=== PATIENT | female | born 1935 | race Hispanic/Latino ===

== ENCOUNTER 2016-09-11 13:34 | Inpatient (IN) | payer MEDICARE, OTHER ==
[2016-09-11 13:51] VITALS: BMI 26.2
[2016-09-11] MEDS ORDERED: Sodium Chloride 0.9% 100 ML IV STA (14:08)
--- NOTE | 2016-09-11 14:08 | ED PDOC ---
Arrival/HPI - General Historian: Patient - History of Present Illness Time/Duration: < week Symptom Onset: Gradual Symptom Course: Unchanged Quality: Aching, Cramping Severity Level: 5 Activities at Onset: Rest Context: Home <Soumya Nguyen - Last Filed: 09/11/16 16:36> <Dulce Maria Raymundo - Last Filed: 09/11/16 18:35> - General Chief Complaint: Abdominal Pain Time Seen by Provider: 09/11/16 13:51 - History of Present Illness Narrative History of Present Illness (Text): 09/11/16 14:04 This is a 80Y F with PMH HTN, HLD, and anxiety came in for abdominal pain x 4 days. Patient reports 4 days ago she was feeling nauseous and threw up "coffee ground" substance x 2. The patient states she uses Tylenol for pain and denies ibuprofen use. She has not vomited since then, but is having epigastric pain with sour taste in her mouth. She also is having lower abdominal cramping that feels "like she has her period". She does have a total hysterectomy, and denies vaginal bleeding/discharge, hematuria, dysuria or increased frequency. At this time she denies n/v/d, CP, SOB, numbness/tingling, leg swelling. She went to her PMD office today and told her to go to the ED. (Soumya Nguyen) Past Medical History - Provider Review Nursing Documentation Reviewed: Yes - Cardiac Hx Hypertension: Yes - Psychiatric Hx Anxiety: Yes Hx Depression: Yes Hx Substance Use: No - Surgical History Hx Hysterectomy: Yes (complete) - Anesthesia Hx Anesthesia: Yes <Soumya Nguyen - Last Filed: 09/11/16 16:36> Family/Social History - Physician Review Nursing Documentation Reviewed: Yes Family/Social History: Hypertension Smoking Status: Never Smoked Hx Alcohol Use: No Hx Substance Use: No <Soumya Nguyen - Last Filed: 09/11/16 16:36> Allergies/Home Meds <Soumya Nguyen - Last Filed: 09/11/16 16:36> <Dulce Maria Raymundo - Last Filed: 09/11/16 18:35> Allergies/Adverse Reactions: Allergies azithromycin [From Zithromax] Allergy (Verified 09/11/16 13:52) RASH Home Medications: Home Meds Medication Instructions Recorded Confirmed Unobtainable 09/11/16 09/11/16 Review of Systems - Physician Review All systems were reviewed & negative as marked: Yes - Review of Systems Constitutional: Normal. absent: Fevers, Night Sweats Eyes: Normal. absent: Vision Changes ENT: Normal. absent: Hearing Changes Respiratory: Normal. absent: SOB, Cough, Sputum Cardiovascular: Normal. absent: Chest Pain, Edema Gastrointestinal: Abdominal Pain, Nausea, Appetite Changes. absent: Diarrhea, Vomiting Genitourinary Female: Normal. absent: Dysuria, Frequency, Hematuria Musculoskeletal: Normal. absent: Arthralgias, Back Pain Skin: Normal. absent: Rash, Pruritis Neurological: Normal. absent: Headache, Dizziness Endocrine: Normal. absent: Diaphoresis, Polyuria, Polydipsia Hemo/Lymphatic: Normal. absent: Easy Bleeding, Easy Bruising Psychiatric: Anxiety. absent: Depression <Soumya Nguyen - Last Filed: 09/11/16 16:36> Physical Exam Vital Signs Reviewed: Yes Temperature: Afebrile Blood Pressure: Normal Pulse: Tachycardic Respiratory Rate: Normal Appearance: Positive for: Well-Appearing, Non-Toxic, Comfortable Pain Distress: None Mental Status: Positive for: Alert and Oriented X 3 - Systems Exam Head: Present: Atraumatic, Normocephalic Pupils: Present: PERRL Extroacular Muscles: Present: EOMI Conjunctiva: Present: Normal Mouth: Present: Moist Mucous Membranes Neck: Present: Normal Range of Motion Respiratory/Chest: Present: Clear to Auscultation, Good Air Exchange. No: Respiratory Distress, Accessory Muscle Use Cardiovascular: Present: Regular Rate and Rhythm, Normal S1, S2. No: Murmurs Abdomen: Present: Tenderness, Distention, Normal Bowel Sounds. No: Peritoneal Signs Back: Present: Normal Inspection Upper Extremity: Present: Normal Inspection. No: Cyanosis, Edema Lower Extremity: Present: Normal Inspection. No: Edema Neurological: Present: GCS=15, CN II-XII Intact, Speech Normal Skin: Present: Warm, Dry, Normal Color. No: Rashes Psychiatric: Present: Alert, Oriented x 3, Normal Insight, Normal Concentration <Soumya Nguyen - Last Filed: 09/11/16 16:36> <Dulce Maria Raymundo - Last Filed: 09/11/16 18:35> Vital Signs Temp Pulse Resp BP Pulse Ox 09/11/16 16:36 91 H 18 122/65 97 09/11/16 15:45 98 H 18 124/61 97 09/11/16 13:34 98.1 F 111 H 18 126/59 L 97 Medical Decision Making Re-evaluation Time: 16:12 Reassessment Condition: Unchanged - Lab Interpretations I have reviewed the lab results: Yes Interpretation: No sign. chg./baseline - RAD Interpretation Overhead Worker: Radiologist - EKG Interpretation Interpreted by ED Physician: Yes Type: 12 lead EKG Comparison: No previous EKG avail. <Soumya Nguyen - Last Filed: 09/11/16 16:36> <Dulce Maria Raymundo - Last Filed: 09/11/16 18:35> ED Course and Treatment: 09/11/16 14:15 Impression: This is a 80Y F with PMH HTN, HLD who is here for abdominal pain x 4 days. Pain is epigastric as well as suprapubic. Patient was sent by PMD from office. DDx: GI bleed secondary to Gastric ulcer, GERD, UTI, SBO Plan: -- CBC, CMP, Lactic acid, U/A -- CT abd/pelvis -- NS @100 -- Reassess Prior Visits: Notes and results from previous visits were reviewed. 09/11/16 14:17 Progress Note: Patient found to have SBO on CT scan. Patient will be admitted for further management. Spoke with patient and son who are aware and agree with the plan. Spoke with Dr. Stein and surgical scheduler. Spoke with Dr. Culver who accepts the patient into his service. (Soumya Nguyen) 09/11/16 18:32 Patient was evaluated by me with medical record assistant. I examined patient and came up with treatment plan. On examination patient with mild discomfort, she is distended, but denies significant abdominal pain. Denies chest pain or sob. Patient states she moved bowels "like a rabbit" earlier in the day. CT consistent with bowel obstruction. Case discussed with Dr. Brent Stein requested by Dr. Patton. Surgery residents consulted. Patient will be admitted for small bowel obstruction. On re-exam, no abdominal pain or nausea, comfortable. IV fluids continued. (Dulce Maria Raymundo) - Lab Interpretations Lab Results: 09/11/16 14:00 09/11/16 15:20 Lab Results 09/11/16 15:20: Sodium 133, Potassium 3.6, Chloride 95 L, Carbon Dioxide 31, Anion Gap 11, BUN 12, Creatinine 0.6, Est GFR ( Amer) > 60, Est GFR (Non- Af Amer) > 60, Random Glucose 113 H, Calcium 9.2, Total Bilirubin 0.4, AST 33, ALT 31, Alkaline Phosphatase 67, Lactate Dehydrogenase 386, Total Creatine Kinase 41, Troponin I < 0.01, Total Protein 7.5, Albumin 4.0, Globulin 3.5, Albumin/Globulin Ratio 1.1 09/11/16 14:00: Lactic Acid 1.4 09/11/16 14:00: WBC 8.7, RBC 4.61, Hgb 13.9, Hct 40.5, MCV 87.9, MCH 30.2, MCHC 34.3, RDW 13.1, Plt Count 347, MPV 10.1 - RAD Interpretation Narrative RAD Interpretations (Text): 09/11/16 16:12 CT Abd/pelvis showed partial SBO please see full report for more details. 09/11/16 16:16 CXR showed no active disease. (Soumya Nguyen) Radiology Orders: 09/11/16 14:02 ABD & PELVIS W/O PO OR IV CONT [CT] Stat 09/11/16 15:01 CHEST PORTABLE [RAD] Stat - EKG Interpretation EKG Interpretation (Text): 09/11/16 16:13 HR 88. Intervals within normal limits. Normal sinus rhythm. (Soumya Nguyen) - Medication Orders Current Medication Orders: Sodium Chloride (Sodium Chloride 0.9%) 1,000 mls @ 100 mls/hr IV .Q10H TD Morphine Sulfate (Morphine) 2 mg IVP Q4H PRN PRN Reason: Pain, moderate (4-7) Ondansetron HCl (Zofran Inj) 4 mg IVP Q4H PRN PRN Reason: Nausea/Vomiting Discontinued Medications Sodium Chloride (Sodium Chloride 0.9%) 100 mls @ 100 mls/hr IV .Q1H STA Stop: 09/11/16 15:07 Last Admin: 09/11/16 14:30 Dose: 100 mls/hr - PA / [employer]ODUCTION SUPERVISOR / Resident Statement / has reviewed & agrees with the documentation as recorded. / has examined the patient and agrees with the treatment plan. <Dulce Maria Raymundo - Last Filed: 09/11/16 18:35> Disposition/Present on Arrival - Present on Arrival Any Indicators Present on Arrival: No History of DVT/PE: No History of Uncontrolled Diabetes: No Urinary Catheter: No History of Decub. Ulcer: No History Surgical Site Infection Following: None - Disposition Have Diagnosis and Disposition been Completed?: Yes Disposition Time: 16:14 Patient Plan: Admission <Soumya Nguyen - Last Filed: 09/11/16 16:36> <Dulce Maria Raymundo - Last Filed: 09/11/16 18:35> - Disposition Diagnosis: SBO (small bowel obstruction) Disposition: HOSPITALIZED Patient Problems: Current Active Problems Problem Status Onset SBO (small bowel obstruction) Acute Condition: FAIR
--- NOTE | 2016-09-11 15:43 | CT ---
PROCEDURE: CT Abdomen and Pelvis without intravenous contrast HISTORY: abdominal pain COMPARISON: None. TECHNIQUE: Without contrast.. Contrast Dose: Radiation dose: Total exam DLP = 896 mGy-cm. This CT exam was performed using one or more of the following dose reduction techniques: Automated exposure control, adjustment of the mA and/or kV according to patient size, and/or use of iterative reconstruction technique. FINDINGS: LOWER THORAX: Unremarkable. LIVER: Unremarkable. No gross lesion or ductal dilatation. GALLBLADDER AND BILE DUCTS: Unremarkable. PANCREAS: Unremarkable. No gross lesion or ductal dilatation. SPLEEN: Unremarkable. ADRENALS: Unremarkable. No mass. KIDNEYS AND URETERS: Unremarkable. No hydronephrosis. No solid mass. VASCULATURE: Unremarkable. No aortic aneurysm. BOWEL: There is a high-grade partial small bowel obstruction. Multiple dilated bowel loops are seen measuring 4 cm in diameter. There is a transition point in the right lower quadrant from 4 cm to less than 1 cm in diameter. Findings are most likely due to adhesions. There is no evidence of free air or pneumatosis. Findings were discussed with Dr. Nguyen at 3:30 p.m. APPENDIX: Unremarkable. Normal appendix. PERITONEUM: Unremarkable. No free fluid. No free air. LYMPH NODES: Unremarkable. No enlarged lymph nodes. BLADDER: Unremarkable. REPRODUCTIVE: Unremarkable. BONES: No acute fracture. OTHER FINDINGS: None. IMPRESSION: High-grade partial small bowel obstruction with transition point in the right lower quadrant
[2016-09-11 15:52] LABS: ALB/GLOB RATIO 1.1 (1.1-1.8); ALKALINE PHOSPHATASE 67 U/L (38-133); ALT/SGPT 31 U/L (7-56); AST/SGOT 33 U/L (15-39); BILIRUBIN,TOTAL 0.4 mg/dL (0.2-1.3); BLOOD UREA NITROGEN 12 mg/dL (7-21); CALCIUM 9.2 mg/dL (8.4-10.5); CARBON DIOXIDE 31 mmol/L (21-33); CHLORIDE 95 mmol/L (98-107); GFR AFRICAN-AMERICAN > 60; GLUCOSE,RANDOM 113 mg/dL (70-110); POTASSIUM 3.6 mmol/L (3.6-5.0); SODIUM 133 mmol/L (132-148); TOTAL PROTEIN 7.5 g/dL (5.8-8.3)
[2016-09-11 16:05] LABS: TROPONIN I < 0.01 ng/mL
[2016-09-11 16:16] LABS: HEMATOCRIT 40.5 % (36.0-48.0); MEAN CELL VOLUME 87.9 fL (80.0-105.0); WHITE BLOOD COUNT 8.7 10^3/ul (4.5-11.0)
[2016-09-11 16:18] LABS: MEAN CORPUSCULAR HEMOGLOBIN 30.2 pg (25.0-35.0); MEAN CORPUSCULAR HGB CONC 34.3 g/dl (31.0-37.0); MEAN PLATELET VOLUME 10.1 fl (7.0-11.0); RED CELL DISTRIBUTION WIDTH 13.1 % (11.5-14.5)
--- NOTE | 2016-09-11 16:58 | RAD ---
HISTORY: abdominal pain COMPARISON: Chest x-ray performed 02/07/15 TECHNIQUE: Chest, one view. FINDINGS: Patient's chin obscures evaluation of the lung apices. Examination limited by habitus. LUNGS: No focal consolidation. Please note that chest x-ray has limited sensitivity for the detection of pulmonary masses. PLEURA: No significant pleural effusion identified. No definite pneumothorax . CARDIOVASCULAR: Heart size appears within normal limits. Ectatic aorta. Atherosclerotic calcifications. OSSEOUS STRUCTURES: Degenerative changes. Osseous demineralization. VISUALIZED UPPER ABDOMEN: Unremarkable. OTHER FINDINGS: None. IMPRESSION: No focal consolidation, significant pleural effusion, or definite pneumothorax identified.
--- NOTE | 2016-09-11 17:10 | CP.PCM.CON ---
<Stefanie Johnson - Last Filed: 09/11/16 17:11> History of Present Illness - History of Present Illness History of Present Illness: General Surgery Dr. Stein 80 y/o F w/ PMHx of HTN, anxiety, HLD, and depression presented to the ED w/ c/ o abdominal pain x3 days. Pt reports one episode of NBNB vomiting on Saturday. Pt has never experienced abdominal pain like this before. Pt states that the pain waxes and wanes but is not associated with eating. Pt's last BM was yesterday but denies passing gas. Pt admits to nausea, belching, and mild headache but denies dizziness, CP, chest palpitations, C/D, and numbness/ tingling. PMHx: HTN, anxiety, HLD, depression Meds: reviewed in chart Allergies: azithromycin - rash PSHx: YUMIKO and BSO 8 years ago FHx: father - , lung cancer; mother - , kidney cancer SHx: denies smoking, EtOH, drug use. Review of Systems - Review of Systems All systems: reviewed and no additional remarkable complaints except (see HPI) Past Patient History - Past Medical History & Family History Past Medical History?: Yes Past Family History: Reviewed and not pertinent - Past Social History Smoking Status: Never Smoked Alcohol: None Drugs: Denies Home Situation {Lives}: Alone - CARDIAC Hx Hypercholesterolemia: Yes Hx Hypertension: Yes - PSYCHIATRIC Hx Anxiety: Yes Hx Depression: Yes Hx Substance Use: No - SURGICAL HISTORY Hx Surgeries: Yes Hx Hysterectomy: Yes (complete) - ANESTHESIA Hx Anesthesia: Yes Meds Allergies/Adverse Reactions: Allergies Allergy/AdvReac Type Severity Reaction Status Date / Time azithromycin [From Zithromax] Allergy RASH Verified 09/11/16 13:52 Physical Exam - Constitutional Appears: Well, Non-toxic, No Acute Distress - Head Exam Head Exam: ATRAUMATIC, NORMAL INSPECTION, NORMOCEPHALIC - Eye Exam Eye Exam: Normal appearance - ENT Exam ENT Exam: Mucous Membranes Moist - Neck Exam Neck exam: Positive for: Normal Inspection - Respiratory Exam Respiratory Exam: Clear to Auscultation Bilateral, NORMAL BREATHING PATTERN. absent: Accessory Muscle Use, Respiratory Distress - Cardiovascular Exam Cardiovascular Exam: REGULAR RHYTHM, +S1, +S2 - GI/Abdominal Exam GI & Abdominal Exam: Diminished Bowel Sounds (RLQ), Distended (minimal), Soft, Tenderness (minimal diffuse TTP). absent: Guarding, Rebound, Rigid Additional comments: tympanic to percussion in LUQ midline scar present - Extremities Exam Extremities exam: Positive for: normal inspection - Back Exam Back exam: NORMAL INSPECTION - Neurological Exam Neurological exam: Alert, Oriented x3 - Psychiatric Exam Psychiatric exam: Normal Affect, Normal Mood - Skin Skin Exam: Dry, Intact, Normal Color, Warm Results - Vital Signs Recent Vital Signs: Last Vital Signs Temp 98.1 F 09/11/16 13:34 Pulse 91 H 09/11/16 16:36 Resp 18 09/11/16 16:36 BP 122/65 09/11/16 16:36 Pulse Ox 97 09/11/16 16:36 - Labs Result Diagrams: 09/11/16 14:00 09/11/16 15:20 Labs: Laboratory Results - last 24 hr 09/11/16 09/11/16 09/11/16 14:00 14:00 15:20 WBC 8.7 RBC 4.61 Hgb 13.9 Hct 40.5 MCV 87.9 MCH 30.2 MCHC 34.3 RDW 13.1 Plt Count 347 MPV 10.1 Sodium 133 Potassium 3.6 Chloride 95 L Carbon Dioxide 31 Anion Gap 11 BUN 12 Creatinine 0.6 Est GFR ( Amer) > 60 Est GFR (Non-Af Amer) > 60 Random Glucose 113 H Lactic Acid 1.4 Calcium 9.2 Total Bilirubin 0.4 AST 33 ALT 31 Alkaline Phosphatase 67 Lactate Dehydrogenase 386 Total Creatine Kinase 41 Troponin I < 0.01 Total Protein 7.5 Albumin 4.0 Globulin 3.5 Albumin/Globulin Ratio 1.1 - Imaging and Cardiology CT scan - abdomen Status: Image reviewed by me Assessment & Plan - Assessment and Plan (Free Text) Assessment: 80 y/o F w/ abd pain likely 2/2 SBO Plan: - NPO, IVF - Monitor bowel function - NGT placement if N/V worsens - Pain management - Medical management as per primary team - GI/DVT PPxs Pt discussed w/ Dr. Emil Johnson DO PGY1 <Young Stein - Last Filed: 09/11/16 21:00> Meds - Medications Medications: Current Medications Diazepam (Valium) 10 mg PO QID TD PRN Reason: Protocol Sodium Chloride (Sodium Chloride 0.9%) 1,000 mls @ 100 mls/hr IV .Q10H TD Last Admin: 09/11/16 19:00 Dose: 100 mls/hr Metoprolol Tartrate (Lopressor) 5 mg IVP Q6H PRN PRN Reason: Systolic Blood Pressure Morphine Sulfate (Morphine) 2 mg IVP Q4H PRN PRN Reason: Pain, moderate (4-7) Ondansetron HCl (Zofran Inj) 4 mg IVP Q4H PRN PRN Reason: Nausea/Vomiting Results - Vital Signs Recent Vital Signs: Last Vital Signs Temp 97.8 F 09/11/16 19:39 Pulse 93 H 09/11/16 20:07 Resp 16 09/11/16 20:07 BP 162/87 H 09/11/16 19:39 Pulse Ox 98 09/11/16 20:07 - Labs Result Diagrams: 09/11/16 14:00 09/11/16 15:20 Labs: Laboratory Results - last 24 hr 09/11/16 19:29 Urine Color Yellow Urine Appearance Cloudy Urine pH 6.0 Ur Specific [place] 1.015 Urine Protein Trace H Urine Glucose (UA) Negative Urine Ketones Trace H Urine Blood Trace-intact H Urine Nitrate Negative Urine Bilirubin Negative Urine Urobilinogen 0.2 Ur Leukocyte Esterase Large H Urine RBC 1 - 3 Urine WBC 25 - 30 Ur Epithelial Cells 6 - 8 Urine Bacteria Many Assessment & Plan - Assessment and Plan (Free Text) Assessment: DX PSBO-Adhesions HT Hyperlipidemia Rx NPO-? NG Tube/No Surgery recommended now This consultation done under my direct supervision Brent Stein MD FACS
[2016-09-11] MEDS ORDERED: Morphine 2 mg/ml ISec IVP PRN (17:40)
[2016-09-11] MEDS: Sodium Chloride 0.9% 1,000 ML IV SCH (19:00)
[2016-09-11 19:39] LABS: URINE BILIRUBIN NEGATIVE (NEGATIVE); URINE BLOOD TRACE-INTACT (NEGATIVE); URINE GLUCOSE (UA) NEGATIVE (NEGATIVE); URINE KETONE TRACE mg/dL (NEGATIVE); URINE LEUKOCYTE ESTERASE LARGE Leu/uL (NEGATIVE); URINE PROTEIN TRACE mg/dL (<30 mg/dL); URINE UROBILINOGEN 0.2 E.U./dL (<1 E.U./dL)
[2016-09-11 19:42] LABS: URINE COLOR YELLOW (YELLOW)
[2016-09-11 19:43] LABS: URINE APPEARANCE CLOUDY (CLEAR)
[2016-09-11 20:12] LABS: URINE WBC 25 - 30 /hpf (0-6)
[2016-09-11 20:13] LABS: URINE BACTERIA MANY (NEG)
--- NOTE | 2016-09-11 20:58 | CP.PCM.PCO ---
Physician Communication Note - Physician Communication Note Physician Communication Note: PSBO Rx NPO--?NG Tube in am--No surgery now!
--- NOTE | 2016-09-11 21:33 | CARD ---
APPROVED REPORT EKG Measurement Heart [id number] <Conclusion> Normal sinus rhythm Voltage criteria for left ventricular hypertrophy Possible Lateral infarct, age undetermined T wave abnormality, consider inferior ischemia Abnormal ECG
[2016-09-11] MEDS: Metoprolol 1 mg/ml Inj IVP PRN (23:45)
[2016-09-12 07:30] LABS: ADD MANUAL DIFF? NO
[2016-09-12 07:52] LABS: ALB/GLOB RATIO 1.1 (1.1-1.8); ALKALINE PHOSPHATASE 66 U/L (38-133); ALT/SGPT 28 U/L (7-56); AST/SGOT 25 U/L (15-39); BILIRUBIN,TOTAL 0.5 mg/dL (0.2-1.3); BLOOD UREA NITROGEN 14 mg/dL (7-21); CALCIUM 8.9 mg/dL (8.4-10.5); CARBON DIOXIDE 31 mmol/L (21-33); CHLORIDE 97 mmol/L (95-110); GFR AFRICAN-AMERICAN > 60; GLUCOSE,RANDOM 108 mg/dL (70-110); POTASSIUM 3.6 mmol/L (3.6-5.0); SODIUM 133 mmol/L (132-148)
[2016-09-12 07:53] LABS: BASO # 0.04 K/mm3 (0.0-2.0); BASO % 0.5 % (0.0-3.0); EOS # 0.3 (0.0-0.7); EOS % 3.5 % (1.5-5.0); GRAN # 5.96 (1.4-6.5); GRAN % 69.8 % (50.0-68.0); HEMATOCRIT 38.6 % (36.0-48.0); LYMPH % 12.1 % (22.0-35.0); MEAN CELL VOLUME 86.5 fL (80.0-105.0); MEAN CORPUSCULAR HGB CONC 34.7 g/dl (31.0-37.0); MEAN PLATELET VOLUME 9.8 fl (7.0-11.0); MONO # 1.2 (0.1-0.6); MONO % 14.1 % (1.0-6.0); PLATELET COUNT 346 10^3/uL (120.0-450.0); RED CELL DISTRIBUTION WIDTH 12.9 % (11.5-14.5); WHITE BLOOD COUNT 8.5 10^3/ul (4.5-11.0)
[2016-09-12 08:00] LABS: INR 1.03 (0.93-1.08); PARTIAL THROMBOPLASTIN TIME 25.9 Seconds (23.7-30.8)
--- NOTE | 2016-09-12 08:05 | HP ---
HISTORY OF PRESENT ILLNESS: The patient is in the [facility] in [place] Emergency Room. The patient came in with abdominal pain and vomiting. The patient is a 80-year-old white female. She has no history of any fever. She has no history of diarrhea. PAST MEDICAL HISTORY: Significant in that she has hyperlipidemia and hypertension. She has had past history of cataract surgery. She has a past history of total hysterectomy. She has history of anxiety for which she takes anxiety medication from Dr. Cagle, he is a psychiatrist. PHYSICAL EXAMINATION: The patient's evaluation in the Emergency Room: VITAL SIGNS: The pulse is 91, blood pressure 122/65, respirations 18, O2 sat is 97% on room air, respirations are 18 as mentioned. HEAD: Normocephalic. NECK: The thyroid is not enlarged and no lymphadenopathy. Carotid pulses are present. LUNGS: Trachea central. Breath sounds vesicular. No adventitious sounds are heard. HEART: NSR. S1, S2 present. No murmurs, no rubs. ABDOMEN: Soft and distended. There is some localizing tenderness in the left lower quadrant. RECTAL: Does not reveal any pathology. CENTRAL NERVOUS SYSTEM: She is conscious, rational, oriented. Cranial nerves are intact II- XII. The patient's motor and sensory functions are within normal limits. The patient has no gait abnormality. LABORATORY DATA: Total white count of 8000. Differential is not completed at this time. The patient's chemistry: The blood sugar is 113, sodium is 133, potassium is 3.6. The patient's blood sugar as mentioned, GFR is within normal limits. All other chemical parameters are okay. Liver enzymes are within normal limits, AST and ALT. The alkaline phosphatase is within normal limits. The patient's EKG shows normal sinus rhythm, no acute findings. Chest x-ray is clear. Examination of the abdomen by CAT scan shows evidence of small intestinal obstruction, possibly secondary to adhesions, but any other pathology is not excluded. The patient is being clinically evaluated at this time. She is NPO, on IV fluids and we will keep a close eye on the patient and will watch for any evidence of infection. The patient's diagnosis is small bowel obstruction. The patient has hypertension and also patient has history of depression and anxiety. We will consult Dr. Cagle who is the psychiatrist to evaluate the patient and Dr. Stein, general surgeon, will be called in for the case for evaluation and treatment for surgical management. Rory Culver MD cc: [phone] TT: 09/11/2016 21:59:58 claudio DALTON
--- NOTE | 2016-09-12 08:26 | CP.PCM.PN ---
Subjective - Date & Time of Evaluation Date of Evaluation: 09/12/16 Time of Evaluation: 07:45 - Subjective Subjective: Patient is seen this morning. She is complaining of gas and abdominal pain. Objective - Vital Signs/Intake and Output Vital Signs (last 24 hours): Temp Pulse Resp BP Pulse Ox 98.2 F 88 18 160/95 H 98 09/12/16 00:17 09/12/16 00:17 09/12/16 00:17 09/12/16 00:17 09/11/16 20:07 Intake and Output: 09/12/16 09/12/16 06:59 18:59 Intake Total 800 0 Balance 800 0 - Medications Medications: Current Medications Diazepam (Valium) 10 mg PO QID TD PRN Reason: Protocol Last Admin: 09/11/16 22:30 Dose: Not Given Sodium Chloride (Sodium Chloride 0.9%) 1,000 mls @ 100 mls/hr IV .Q10H [facility] Last Admin: 09/11/16 19:00 Dose: 100 mls/hr Metoprolol Tartrate (Lopressor) 5 mg IVP Q6H PRN PRN Reason: Systolic Blood Pressure Last Admin: 09/11/16 23:45 Dose: 5 mg Morphine Sulfate (Morphine) 2 mg IVP Q4H PRN PRN Reason: Pain, moderate (4-7) Ondansetron HCl (Zofran Inj) 4 mg IVP Q4H PRN PRN Reason: Nausea/Vomiting - Labs Labs: 09/12/16 07:00 09/12/16 07:00 PT 11.1 Seconds (9.9-11.8) 09/12/16 07:00 INR 1.03 (0.93-1.08) 09/12/16 07:00 APTT 25.9 Seconds (23.7-30.8) 09/12/16 07:00 - Constitutional Appears: No Acute Distress - Head Exam Head Exam: ATRAUMATIC, NORMOCEPHALIC - Respiratory Exam Respiratory Exam: Clear to Ausculation Bilateral, NORMAL BREATHING PATTERN - Cardiovascular Exam Cardiovascular Exam: +S1, +S2 - GI/Abdominal Exam GI & Abdominal Exam: Soft Additional comments: mild RLQ tenderness - Neurological Exam Neurological Exam: Alert, Awake, Oriented x3 Assessment and Plan - Assessment and Plan (Free Text) Assessment: Bowel obstruction HTN Anxiety Plan: Patient has bowel obstruction. Dr. Stein is on the case. possible NG tube insertion Patient is NPO, IV fluids. She takes Tranxene at home for anxiety. Dr. Cagle, who is her psychiatrist, is consulted. Tranxene is not available in the hospital. Valium has been ordered, which may be given with sips of water.
[2016-09-12] MEDS ORDERED: Barium Sulfate for Susp 98% w/w 340g Bottle ONE (09:29)
--- NOTE | 2016-09-12 09:40 | RAD ---
HISTORY: Eval PSBO COMPARISON: No prior. FINDINGS: BOWEL: There is small bowel obstruction with multiple dilated loops of small bowel containing air-fluid levels. There is also fluid level in the stomach. There is no evidence of free air BONES: Normal. OTHER FINDINGS: None. IMPRESSION: There is small bowel obstruction with multiple dilated loops of small bowel containing air-fluid levels. There is also fluid level in the stomach. There is no evidence of free air
[2016-09-12] MEDS: Metoprolol 1 mg/ml Inj IVP PRN ×4 (11:35→22:38)
[2016-09-12] MEDS ORDERED: Lidocaine 2% Jelly (Uro-Jet) TOP ONE (11:38)
--- NOTE | 2016-09-12 13:08 | CP.PCM.PCO ---
Physician Communication Note - Physician Communication Note Physician Communication Note: Needs NG Tube-non cramping now
--- NOTE | 2016-09-12 13:35 | CP.PCM.PN ---
Subjective - Date & Time of Evaluation Date of Evaluation: 09/12/16 Time of Evaluation: 09:00 - Subjective Subjective: General Surgery Progress Note for Dr. Stein Pt was seen and examined at bedside. No acure complaints at this time. No acute or adverse events overnight. Pt is passing flatus however has not passed a bm yet. She still feels some abdominal discomfort and distention. Pt denied fever, chills, abdominal pain, n/v/d/c. Objective - Vital Signs/Intake and Output Vital Signs (last 24 hours): Temp Pulse Resp BP Pulse Ox 99.0 F 86 20 176/100 H 97 09/12/16 06:00 09/12/16 11:35 09/12/16 06:00 09/12/16 11:35 09/12/16 06:00 Intake and Output: 09/12/16 09/12/16 06:59 18:59 Intake Total 800 0 Balance 800 0 - Medications Medications: Current Medications Diazepam (Valium) 10 mg PO QID TD PRN Reason: Protocol Last Admin: 09/12/16 11:20 Dose: 10 mg Sodium Chloride (Sodium Chloride 0.9%) 1,000 mls @ 100 mls/hr IV .Q10H [facility] Last Admin: 09/11/16 19:00 Dose: 100 mls/hr Metoprolol Tartrate (Lopressor) 5 mg IVP Q6H PRN PRN Reason: Systolic Blood Pressure Last Admin: 09/12/16 11:35 Dose: 5 mg Morphine Sulfate (Morphine) 2 mg IVP Q4H PRN PRN Reason: Pain, moderate (4-7) Ondansetron HCl (Zofran Inj) 4 mg IVP Q4H PRN PRN Reason: Nausea/Vomiting Pantoprazole Sodium (Protonix Inj) 40 mg IVP DAILY [facility] - Labs Labs: 09/12/16 07:00 09/12/16 07:00 PT 11.1 Seconds (9.9-11.8) 09/12/16 07:00 INR 1.03 (0.93-1.08) 09/12/16 07:00 APTT 25.9 Seconds (23.7-30.8) 09/12/16 07:00 - Constitutional Appears: Well, No Acute Distress - Head Exam Head Exam: ATRAUMATIC, NORMAL INSPECTION, NORMOCEPHALIC - Eye Exam Eye Exam: EOMI, Normal appearance, PERRL - ENT Exam ENT Exam: Mucous Membranes Moist, Normal Exam - Neck Exam Neck Exam: Full ROM, Normal Inspection. absent: Lymphadenopathy - Respiratory Exam Respiratory Exam: Clear to Ausculation Bilateral, NORMAL BREATHING PATTERN - Cardiovascular Exam Cardiovascular Exam: REGULAR RHYTHM, +S1, +S2. absent: Murmur - GI/Abdominal Exam GI & Abdominal Exam: Distended, Soft, Hypoactive Bowel Sounds. absent: Tenderness - Extremities Exam Extremities Exam: Full ROM, Normal Capillary Refill, Normal Inspection. absent : Joint Swelling, Pedal Edema - Back Exam Back Exam: NORMAL INSPECTION - Psychiatric Exam Psychiatric exam: Normal Affect, Normal Mood - Skin Skin Exam: Dry, Intact, Normal Color, Warm Assessment and Plan - Assessment and Plan (Free Text) Assessment: 80 F with abdominal distension and pain 2/2 SBO - NPO, IVF, NGT placed for decompression - Monitor bowel function - Pain management - Medical management as per primary team - GI/DVT ppx reviewed Seen reviewed and discussed with attending Ruddy De León, PGY1
[2016-09-12] MEDS: Sodium Chloride 0.9% 1,000 ML IV SCH (14:19)
--- NOTE | 2016-09-12 15:51 | PCM.PSYCH ---
Initial Psychiatric Evaluation - Initial Psychiatric Evaluation Legal Status: Capacity Chief Complaint (in patient's own words): Abdominal pain presumably secondary to small bowel obstruction Patient noted to be very anxious. Has been under my care for many years for a generalized anxiety disorder with somatic features Patient's Reaction to Hospitalization: Patient anxious and worried over her medical status. She ordinarily has health concerns and can be quite histrionic in her anxiety and presentation. Often times needs much reassurance and support History of Present Illness and Precipitating Events: Patient under my care for many years for an anxiety disorder with somatic and histrionic features Current Medications: Active Medications Generic Name Dose Route Start Last Admin Trade Name Freq PRN Reason Stop Dose Admin Clonidine HCl 1 patch 09/12/16 14:00 09/12/16 14:18 Catapres-Tts3 0.3 Mg/24 Hr TD 1 patch Q7D@1000 TD Administration Diazepam 10 mg 09/11/16 22:00 09/12/16 14:24 Valium PO 10 mg QID TD Administration Protocol Sodium Chloride 1,000 mls @ 100 mls/hr 09/11/16 17:45 09/12/16 14:19 Sodium Chloride 0.9% IV 100 mls/hr .Q10H TD Administration Metoprolol Tartrate 5 mg 09/12/16 13:44 09/12/16 14:23 Lopressor IVP 5 mg Q4H PRN Administration for SBP>140 Morphine Sulfate 2 mg 09/11/16 17:40 Morphine IVP Q4H PRN Pain, moderate (4-7) Ondansetron HCl 4 mg 09/11/16 17:40 Zofran Inj IVP Q4H PRN Nausea/Vomiting Pantoprazole Sodium 40 mg 09/12/16 13:45 09/12/16 14:24 Protonix Inj IVP 40 mg DAILY TD Administration Past Psychiatric History - Past Psychiatric History Prior Psychiatric Treatment: Under my care since the Nature of Treatment: Is seen several times a year on an outpatient basis. Years ago was seen Explanation of prior treatment: Patient Wil comes for supportive psychotherapy and has been on Tranxene for many yearssince 1986 History of Abuse: Denies History of ETOH/Drug Use: I deny History of Family Illness: in the . Patient has never fully recovered from this loss. Pertinent Medical Hx (Current Medical&Sleep Prob, Allergies): Allergies Allergy/AdvReac Type Severity Reaction Status Date / Time azithromycin [From Zithromax] Allergy RASH Verified 09/11/16 13:52 Unobtainable 09/11/16 Review of Systems - Constitutional Constitutional: UN - EENT Eyes: UNREMARKABLE Ears: UNREMARKABLE Nose/Mouth/Throat: UNREMARKABLE - Breasts Breasts: UNREMARKABLE - Cardiovascular Cardiovascular: UNREMARKABLE - Respiratory Respiratory: UNREMARKABLE - Gastrointestinal Gastrointestinal: UNREMARKABLE - Genitourinary Genitourinary: UNREMARKABLE - Reproductive: Female Reproductive:Female: UNREMARKABLE - Menstruation Menstruation: UNREMARKABLE - Musculoskeletal Musculoskeletal: UNREMARKABLE - Integumentary Integumentary: UNREMARKABLE - Neurological Neurological: UNREMARKABLE - Psychiatric Psychiatric: Anxiety, Depression, Panic Attacks - Endocrine Endocrine: UNREMARKABLE - Hematologic/Lymphatic Hematologic: UNREMARKABLE DSM 5 DX - DSM 5 DSM 5 Diagnosis: Generalized anxiety disorder Histrionic personality disorder Symptom somatic disorder - Recommended/Plan of Treatment Treatment Recommendations and Plan of Treatment: Ongoing supportive psychotherapy and pharmacotherapy with benzodiazepine tranquilization
--- NOTE | 2016-09-12 18:38 | CARD ---
APPROVED REPORT EKG Measurement Heart [id number] <Conclusion> Normal sinus rhythm Possible Left atrial enlargement Left ventricular hypertrophy with repolarization abnormality Cannot rule out Septal infarct, age undetermined Abnormal ECG
[2016-09-13] MEDS: Sodium Chloride 0.9% 1,000 ML IV SCH ×2 (02:58→20:20)
[2016-09-13 07:14] LABS: ADD MANUAL DIFF? NO
[2016-09-13 07:20] LABS: BASO # 0.06 K/mm3 (0.0-2.0); EOS # 0.2 (0.0-0.7); EOS % 3.4 % (1.5-5.0); GRAN # 3.36 (1.4-6.5); GRAN % 57.9 % (50.0-68.0); HEMATOCRIT 36.5 % (36.0-48.0); LYMPH # 1.1 (1.2-3.4); LYMPH % 18.4 % (22.0-35.0); MEAN CELL VOLUME 86.5 fL (80.0-105.0); MEAN CORPUSCULAR HEMOGLOBIN 30.1 pg (25.0-35.0); MEAN CORPUSCULAR HGB CONC 34.8 g/dl (31.0-37.0); MEAN PLATELET VOLUME 9.8 fl (7.0-11.0); MONO # 1.1 (0.1-0.6); MONO % 19.3 % (1.0-6.0); PLATELET COUNT 320 10^3/uL (120.0-450.0); RED CELL DISTRIBUTION WIDTH 12.9 % (11.5-14.5); WHITE BLOOD COUNT 5.8 10^3/ul (4.5-11.0)
[2016-09-13 07:52] LABS: ALB/GLOB RATIO 1.1 (1.1-1.8); ALKALINE PHOSPHATASE 59 U/L (38-133); ALT/SGPT 29 U/L (7-56); AST/SGOT 23 U/L (15-39); BILIRUBIN,TOTAL 0.4 mg/dL (0.2-1.3); BLOOD UREA NITROGEN 14 mg/dL (7-21); CALCIUM 8.3 mg/dL (8.4-10.5); CARBON DIOXIDE 27 mmol/L (21-33); CHLORIDE 100 mmol/L (95-110); GFR AFRICAN-AMERICAN > 60; GLUCOSE,RANDOM 84 mg/dL (70-110); POTASSIUM 3.4 mmol/L (3.6-5.0); SODIUM 133 mmol/L (132-148); TOTAL PROTEIN 6.1 g/dL (5.8-8.3)
--- NOTE | 2016-09-13 09:55 | CP.PCM.PN ---
Subjective - Date & Time of Evaluation Date of Evaluation: 09/13/16 Time of Evaluation: 08:30 - Subjective Subjective: General Surgery Progress Note for Dr. Stein Pt was seen and examined at bedside. No acute complaints at this time. No acute or adverse events overnight. Pt had NG tube place yesterday that voided approx 2L of fluid. Pt is continuing to drain light green fluid. Pt is passing flatus however has not passed a bm yet. She states her abdomen feels less bloated than yesterday. Denied fever chills, abdominal pain, n/v/d/c. Objective - Vital Signs/Intake and Output Vital Signs (last 24 hours): Temp Pulse Resp BP Pulse Ox 98.7 F 84 20 174/85 H 98 09/13/16 07:59 09/13/16 07:59 09/13/16 07:59 09/13/16 07:59 09/13/16 07:59 Intake and Output: 09/13/16 09/13/16 06:59 18:59 Intake Total 0 0 Output Total 1 Balance 0 -1 - Medications Medications: Current Medications Benzocaine/Menthol (Cepacol Sore Throat) 1 loraine MT Q2H PRN PRN Reason: Sore Throat Clonidine HCl (Catapres-Tts3 0.3 Mg/24 Hr) 1 patch TD Q7D@1000 [facility] Last Admin: 09/12/16 14:18 Dose: 1 patch Diazepam (Valium) 10 mg PO QID [facility] PRN Reason: Protocol Last Admin: 09/12/16 22:39 Dose: 10 mg Sodium Chloride (Sodium Chloride 0.9%) 1,000 mls @ 100 mls/hr IV .Q10H [facility] Last Admin: 09/13/16 02:58 Dose: 100 mls/hr Metoprolol Tartrate (Lopressor) 5 mg IVP Q4H PRN PRN Reason: for SBP>140 Last Admin: 09/12/16 22:38 Dose: 5 mg Morphine Sulfate (Morphine) 2 mg IVP Q4H PRN PRN Reason: Pain, moderate (4-7) Last Admin: 09/13/16 02:00 Dose: 2 mg Ondansetron HCl (Zofran Inj) 4 mg IVP Q4H PRN PRN Reason: Nausea/Vomiting Pantoprazole Sodium (Protonix Inj) 40 mg IVP DAILY [facility] Last Admin: 09/12/16 14:24 Dose: 40 mg - Labs Labs: 09/13/16 07:00 09/13/16 07:00 PT 11.1 Seconds (9.9-11.8) 09/12/16 07:00 INR 1.03 (0.93-1.08) 09/12/16 07:00 APTT 25.9 Seconds (23.7-30.8) 09/12/16 07:00 - Constitutional Appears: No Acute Distress - Head Exam Head Exam: ATRAUMATIC, NORMAL INSPECTION, NORMOCEPHALIC - Eye Exam Eye Exam: EOMI, Normal appearance, PERRL - ENT Exam ENT Exam: Mucous Membranes Moist, Normal Exam - Neck Exam Neck Exam: Full ROM, Normal Inspection. absent: Lymphadenopathy - Respiratory Exam Respiratory Exam: Clear to Ausculation Bilateral, NORMAL BREATHING PATTERN - Cardiovascular Exam Cardiovascular Exam: REGULAR RHYTHM, +S1, +S2. absent: Murmur - GI/Abdominal Exam GI & Abdominal Exam: Soft, Hypoactive Bowel Sounds. absent: Tenderness Additional comments: NG tube in place - Extremities Exam Extremities Exam: Full ROM, Normal Capillary Refill, Normal Inspection. absent : Joint Swelling, Pedal Edema - Neurological Exam Neurological Exam: Alert, Awake, CN II-XII Intact, Oriented x3 - Psychiatric Exam Psychiatric exam: Normal Affect, Normal Mood - Skin Skin Exam: Dry, Intact, Normal Color, Warm Assessment and Plan - Assessment and Plan (Free Text) Assessment: 80 F with abdominal distension and pain 2/2 SBO - NPO, IVF, NGT placed for decompression - Monitor bowel function, clamp NGT and walk recommended - Pain management - Medical management as per primary team - GI/DVT ppx reviewed Seen reviewed and discussed with attending
--- NOTE | 2016-09-13 11:00 | RAD ---
PROCEDURE: Small bowel series HISTORY: SBO COMPARISON: TECHNIQUE: A single contrast study was performed. FINDINGS: As seen on CT there is small bowel obstruction with multiple dilated loops of small bowel. There is no significant of movement of contrast through the small bowel. The study was discontinued after 1 hour. IMPRESSION: Small bowel obstruction. Limited exam
--- NOTE | 2016-09-13 14:20 | CP.PCM.PN ---
Subjective - Date & Time of Evaluation Date of Evaluation: 09/13/16 Time of Evaluation: 13:45 - Subjective Subjective: Patient is seen this afternoon in room 364 bed 2. NG tube in place and draining green fluid. Patient complains of abdominal discomfort. Objective - Vital Signs/Intake and Output Vital Signs (last 24 hours): Temp Pulse Resp BP Pulse Ox 98.7 F 84 20 174/85 H 98 09/13/16 07:59 09/13/16 07:59 09/13/16 07:59 09/13/16 07:59 09/13/16 07:59 Intake and Output: 09/13/16 09/13/16 06:59 18:59 Intake Total 0 0 Output Total 1 Balance 0 -1 - Medications Medications: Current Medications Benzocaine/Menthol (Cepacol Sore Throat) 1 loraine MT Q2H PRN PRN Reason: Sore Throat Clonidine HCl (Catapres-Tts3 0.3 Mg/24 Hr) 1 patch TD Q7D@1000 [facility] Last Admin: 09/12/16 14:18 Dose: 1 patch Diazepam (Valium) 10 mg PO QID [facility] PRN Reason: Protocol Last Admin: 09/13/16 11:58 Dose: 10 mg Sodium Chloride (Sodium Chloride 0.9%) 1,000 mls @ 100 mls/hr IV .Q10H [facility] Last Admin: 09/13/16 02:58 Dose: 100 mls/hr Metoprolol Tartrate (Lopressor) 5 mg IVP Q4H PRN PRN Reason: for SBP>140 Last Admin: 09/12/16 22:38 Dose: 5 mg Ondansetron HCl (Zofran Inj) 4 mg IVP Q4H PRN PRN Reason: Nausea/Vomiting Pantoprazole Sodium (Protonix Inj) 40 mg IVP DAILY [facility] Last Admin: 09/13/16 11:58 Dose: 40 mg - Labs Labs: 09/13/16 07:00 09/13/16 07:00 PT 11.1 Seconds (9.9-11.8) 09/12/16 07:00 INR 1.03 (0.93-1.08) 09/12/16 07:00 APTT 25.9 Seconds (23.7-30.8) 09/12/16 07:00 - Constitutional Appears: No Acute Distress - Respiratory Exam Respiratory Exam: Clear to Ausculation Bilateral, NORMAL BREATHING PATTERN - Cardiovascular Exam Cardiovascular Exam: REGULAR RHYTHM, +S1, +S2 - GI/Abdominal Exam GI & Abdominal Exam: Soft, Hypoactive Bowel Sounds. absent: Tenderness - Extremities Exam Extremities Exam: Normal Inspection - Neurological Exam Neurological Exam: Alert, Awake, Oriented x3 Assessment and Plan - Assessment and Plan (Free Text) Assessment: SBO HTN Anxiety H/O hysterectomy Hyperlipidemia Plan: Nasogastric tube placed yesterday and draining large amounts of green fluid. 500 ml of fluid drained since this morning. continue NG tube drainage NPO, IVFs, potassium replaced this morning; BMP in AM Patient with severe anxiety disorder. She is currently on valium and Dr. Cagle is seeing her. OOB to chair
--- NOTE | 2016-09-13 22:20 | PCM.PYCHPN ---
Psychiatric Progress Note - Psychiatric Progress Note Patient seen today, length of contact: 25 Patient Chief Complaint: Abdominal pain presumably secondary to small bowel obstruction Patient noted to be very anxious. Has been under my care for many years for a generalized anxiety disorder with somatic features Problems Identified/Issues Discussed: being treated for intestinal blockage. Is anxious, depressed. I've offered supportive therapy for this woman who is frequently somatic Medical Problems: Patient Wil comes for supportive psychotherapy and has been on Tranxene for many yearssince 1986 Diagnostic Results: Remains anxious. Affect appears more depressed and patient does speak about feeling depressed. Needs encouragement and support. Medication Change: No Medical Record Reviewed: Yes Mental Status Examination - Cognitive Function Orientation: Person, Place, Situation, Time Memory: Intact Attention: WNL Concentration: WNL Fund of Knowledge: WNL Decription of patient's judgement and insights: Aware of her present health status although tends to catastrophize. Her insight and judgment is generally affected by this hypochondriacal anxiety. - Mood Mood: Depressed, Anxious - Affect Affect: Depressed - Formal Thought Process Formal Thought Process: No Impairment - Suicidal Ideation Suicidal Ideation: No - Homicidal Ideation Homicidal Ideation: No Goal/Treatment Plan - Goal/Treatment Plan Progress Toward Problem(s) and Goals/Treatment Plan: Ongoing supportive psychotherapy and pharmacotherapy with benzodiazepine tranquilization
[2016-09-14] MEDS: Sodium Chloride 0.9% 1,000 ML IV SCH (05:59)
[2016-09-14 07:20] LABS: ADD MANUAL DIFF? NO
[2016-09-14 07:27] LABS: BASO # 0.14 K/mm3 (0.0-2.0); BASO % 2.5 % (0.0-3.0); EOS # 0.4 (0.0-0.7); EOS % 6.7 % (1.5-5.0); GRAN # 3.02 (1.4-6.5); GRAN % 53.5 % (50.0-68.0); HEMATOCRIT 33.5 % (36.0-48.0); LYMPH % 18.3 % (22.0-35.0); MEAN CELL VOLUME 88.6 fL (80.0-105.0); MEAN CORPUSCULAR HEMOGLOBIN 30.4 pg (25.0-35.0); MEAN CORPUSCULAR HGB CONC 34.3 g/dl (31.0-37.0); MEAN PLATELET VOLUME 9.5 fl (7.0-11.0); MONO # 1.1 (0.1-0.6); PLATELET COUNT 293 10^3/uL (120.0-450.0); RED CELL DISTRIBUTION WIDTH 13.3 % (11.5-14.5); WHITE BLOOD COUNT 5.6 10^3/ul (4.5-11.0)
[2016-09-14 07:37] LABS: ALKALINE PHOSPHATASE 46 U/L (38-133); ALT/SGPT 28 U/L (7-56); AST/SGOT 25 U/L (15-39); BILIRUBIN,TOTAL 0.5 mg/dL (0.2-1.3); BLOOD UREA NITROGEN 18 mg/dL (7-21); CALCIUM 8.1 mg/dL (8.4-10.5); CARBON DIOXIDE 24 mmol/L (21-33); CHLORIDE 104 mmol/L (95-110); GFR AFRICAN-AMERICAN > 60; GLUCOSE,RANDOM 58 mg/dL (70-110); SODIUM 135 mmol/L (132-148); TOTAL PROTEIN 5.8 g/dL (5.8-8.3)
[2016-09-14 07:42] LABS: POTASSIUM 3.8 mmol/L (3.6-5.0)
--- NOTE | 2016-09-14 08:06 | CP.PCM.PN ---
Subjective - Date & Time of Evaluation Date of Evaluation: 09/14/16 Time of Evaluation: 07:40 - Subjective Subjective: Patient is seen this morning in room 364 bed 2 while sitting up in chair. She has dark brown -greenish fluid draining through NG tube. Objective - Vital Signs/Intake and Output Vital Signs (last 24 hours): Temp Pulse Resp BP Pulse Ox 98.7 F 94 H 20 154/83 H 98 09/13/16 16:00 09/13/16 16:00 09/13/16 16:00 09/13/16 16:00 09/13/16 16:00 Intake and Output: 09/14/16 09/14/16 06:59 18:59 Intake Total 2400 Output Total 275 Balance 2400 -275 - Medications Medications: Current Medications Benzocaine/Menthol (Cepacol Sore Throat) 1 loraine MT Q2H PRN PRN Reason: Sore Throat Clonidine HCl (Catapres-Tts3 0.3 Mg/24 Hr) 1 patch TD Q7D@1000 [facility] Last Admin: 09/12/16 14:18 Dose: 1 patch Diazepam (Valium) 10 mg PO QID [facility] PRN Reason: Protocol Last Admin: 09/13/16 21:45 Dose: 10 mg Sodium Chloride (Sodium Chloride 0.9%) 1,000 mls @ 100 mls/hr IV .Q10H [facility] Last Admin: 09/14/16 05:59 Dose: 100 mls/hr Metoprolol Tartrate (Lopressor) 5 mg IVP Q4H PRN PRN Reason: for SBP>140 Last Admin: 09/12/16 22:38 Dose: 5 mg Ondansetron HCl (Zofran Inj) 4 mg IVP Q4H PRN PRN Reason: Nausea/Vomiting Pantoprazole Sodium (Protonix Inj) 40 mg IVP DAILY [facility] Last Admin: 09/13/16 11:58 Dose: 40 mg - Labs Labs: 09/14/16 06:20 09/14/16 06:20 PT 11.1 Seconds (9.9-11.8) 09/12/16 07:00 INR 1.03 (0.93-1.08) 09/12/16 07:00 APTT 25.9 Seconds (23.7-30.8) 09/12/16 07:00 - Constitutional Appears: No Acute Distress - Head Exam Head Exam: ATRAUMATIC, NORMOCEPHALIC - Respiratory Exam Respiratory Exam: Clear to Ausculation Bilateral, NORMAL BREATHING PATTERN - Cardiovascular Exam Cardiovascular Exam: +S1, +S2 - GI/Abdominal Exam GI & Abdominal Exam: Soft. absent: Tenderness - Neurological Exam Neurological Exam: Alert, Awake, Oriented x3 Assessment and Plan - Assessment and Plan (Free Text) Assessment: SBO HTN Anxiety Plan: Patient has NG tube in place, draining dark brown greenish fluid. She will continue to be NPO. Potassium normalized today. Blood sugar is low. Will change IVFs to D51/2NS OOB to chair continue Valium for anxiety
[2016-09-14] MEDS ORDERED: Dextrose 5%/0.45% NS 1,000 ML IV SCH (08:15)
--- NOTE | 2016-09-14 09:25 | CP.PCM.PN ---
Subjective - Date & Time of Evaluation Date of Evaluation: 09/14/16 Time of Evaluation: 07:30 - Subjective Subjective: Surgery: Dr. Stein Pt seen and examined. No acute events overnight. States she feels ok but still denies having a BM, admits to some flatus. Denies N/V, F/C. Objective - Vital Signs/Intake and Output Vital Signs (last 24 hours): Temp Pulse Resp BP Pulse Ox 98 F 77 18 113/58 L 96 09/14/16 08:25 09/14/16 08:25 09/14/16 08:25 09/14/16 08:25 09/14/16 08:25 Intake and Output: 09/14/16 09/14/16 06:59 18:59 Intake Total 2400 Output Total 275 Balance 2400 -275 - Medications Medications: Current Medications Benzocaine/Menthol (Cepacol Sore Throat) 1 loraine MT Q2H PRN PRN Reason: Sore Throat Clonidine HCl (Catapres-Tts3 0.3 Mg/24 Hr) 1 patch TD Q7D@1000 [facility] Last Admin: 09/12/16 14:18 Dose: 1 patch Diazepam (Valium) 10 mg PO QID [facility] PRN Reason: Protocol Last Admin: 09/13/16 21:45 Dose: 10 mg Dextrose/Sodium Chloride (Dextrose 5%/0.45% Ns 1000 Ml) 1,000 mls @ 80 mls/hr IV .[id number] [facility] Metoprolol Tartrate (Lopressor) 5 mg IVP Q4H PRN PRN Reason: for SBP>140 Last Admin: 09/12/16 22:38 Dose: 5 mg Ondansetron HCl (Zofran Inj) 4 mg IVP Q4H PRN PRN Reason: Nausea/Vomiting Pantoprazole Sodium (Protonix Inj) 40 mg IVP DAILY [facility] Last Admin: 09/13/16 11:58 Dose: 40 mg - Labs Labs: 09/14/16 06:20 09/14/16 06:20 PT 11.1 Seconds (9.9-11.8) 09/12/16 07:00 INR 1.03 (0.93-1.08) 09/12/16 07:00 APTT 25.9 Seconds (23.7-30.8) 09/12/16 07:00 - Constitutional Appears: Well, No Acute Distress - Head Exam Head Exam: ATRAUMATIC, NORMOCEPHALIC - Eye Exam Eye Exam: Normal appearance - ENT Exam ENT Exam: Mucous Membranes Moist Additional comments: NGT in place - Respiratory Exam Respiratory Exam: NORMAL BREATHING PATTERN - Cardiovascular Exam Cardiovascular Exam: RRR - GI/Abdominal Exam GI & Abdominal Exam: Distended, Soft. absent: Guarding, Tenderness, Rebound - Extremities Exam Extremities Exam: absent: Tenderness - Neurological Exam Neurological Exam: Alert, Awake, Oriented x3 - Skin Skin Exam: Dry, Intact, Warm Assessment and Plan - Assessment and Plan (Free Text) Assessment: 80F with SBO Plan: - cont NGT suction - will order abdomen flat/upright to re-eval obstruction and positioning of NGT since output continues to be high - monitor bowel function - d/w Dr. Emil López, PGY-2 Surgery
--- NOTE | 2016-09-14 11:11 | RAD ---
HISTORY: evaluate SBO/NGT COMPARISON: 09/12/2016 FINDINGS: BOWEL: There is residual barium contrast material in the small bowel. The small bowel is dilated measuring 5.4 cm maximum diameter. The nasogastric tube is in satisfactory position BONES: Normal. OTHER FINDINGS: None. IMPRESSION: There is residual barium contrast material in the small bowel. The small bowel is dilated measuring 5.4 cm maximum diameter. The nasogastric tube is in satisfactory position
--- NOTE | 2016-09-14 12:56 | PCM.PYCHPN ---
Psychiatric Progress Note - Psychiatric Progress Note Patient seen today, length of contact: 25 Patient Chief Complaint: Abdominal pain presumably secondary to small bowel obstruction Patient noted to be very anxious. Has been under my care for many years for a generalized anxiety disorder with somatic features Problems Identified/Issues Discussed: being treated for intestinal blockage. Is anxious, depressed. I've offered supportive therapy for this woman who is frequently somatic Medical Problems: Patient Wil comes for supportive psychotherapy and has been on Tranxene for many yearssince 1986 Diagnostic Results: Remains anxious. Affect appears more depressed and patient does speak about feeling depressed. Needs encouragement and support. DSM 5 Symptoms Update: Mood and affect improving. Less anxious. Less depressed. More interactive. Medication Change: No Medical Record Reviewed: Yes Mental Status Examination - Cognitive Function Orientation: Person, Place, Situation, Time Memory: Intact Attention: WNL Concentration: WNL Fund of Knowledge: WNL Decription of patient's judgement and insights: Aware of her present health status although tends to catastrophize. Her insight and judgment is generally affected by this hypochondriacal anxiety. - Mood Mood: Neutral - Affect Affect: Broad - Speech Speech: Appropriate - Formal Thought Process Formal Thought Process: No Impairment - Suicidal Ideation Suicidal Ideation: No - Homicidal Ideation Homicidal Ideation: No Goal/Treatment Plan - Goal/Treatment Plan Progress Toward Problem(s) and Goals/Treatment Plan: Ongoing supportive psychotherapy and pharmacotherapy with benzodiazepine tranquilization On September 14 patient showing significant improvement compared to yesterday. More interactive. Affect brighter less somatic although still somatic.
--- NOTE | 2016-09-14 13:53 | PN ---
DATE: 09/14/2016 SUBJECTIVE: The patient is draining more than 2000 mL of green small bowel content daily. The input and output is difficult to obtain for proper documentation and the nursing staff is now notified yossi t this will be important along with daily weights. The patient's cramping has disappeared. She has passed a large amount of flatus this morning without passing any particular liquid from the rectum, but feels better and is comfortable with the tube, ta shiv Cepastat lozenge and ice chips with water. Extensive discussion was held with the patient and xiomara davis by telephone with her son describing this conservative measure to attempt to avoid surgical inter vention if possible. Questions were asked and answered and all issues were addressed at this point. The patient did ask if surgery was necessary if it could be done laparoscopically and it was explain ed that it would be initially tried that way, but as the patient has had a hysterectomy and most of t he adhesions would be down in the lower pelvis, this may or may not be possible if she undergoes surg joseph. In the meantime, the intravenous fluids will be increased to 100 mL an hour and potassium was recomme nded to be added because of the significant output and the patient's clinical hydration status. This dictation will be electronically signed without being read. Young Stein MD cc: [id number] TT: 09/14/2016 13:53:02 Confirmation # [id number] Dictation # [id number] paul
[2016-09-14] MEDS: Benzocaine/Menthol (Cepacol) Lozenge MT PRN (13:57)
[2016-09-15 07:40] LABS: ADD MANUAL DIFF? NO
[2016-09-15 07:53] LABS: BASO % 2.1 % (0.0-3.0); EOS # 0.3 (0.0-0.7); GRAN # 2.92 (1.4-6.5); GRAN % 60.1 % (50.0-68.0); HEMATOCRIT 31.9 % (36.0-48.0); LYMPH # 0.9 (1.2-3.4); LYMPH % 18.8 % (22.0-35.0); MEAN CELL VOLUME 88.1 fL (80.0-105.0); MEAN CORPUSCULAR HEMOGLOBIN 30.4 pg (25.0-35.0); MEAN CORPUSCULAR HGB CONC 34.5 g/dl (31.0-37.0); MEAN PLATELET VOLUME 9.6 fl (7.0-11.0); MONO # 0.6 (0.1-0.6); PLATELET COUNT 287 10^3/uL (120.0-450.0); RED CELL DISTRIBUTION WIDTH 13.1 % (11.5-14.5); WHITE BLOOD COUNT 4.9 10^3/ul (4.5-11.0)
[2016-09-15] MEDS ORDERED: D5 IV SCH (07:55)
[2016-09-15] MEDS ORDERED: [UNRECOGNIZED DRUG - OTHER] IV SCH (07:55)
[2016-09-15] MEDS ORDERED: POTASSIUM CHL IV SCH (07:55)
[2016-09-15] MEDS ORDERED: DEXTROSE IV SCH (07:55)
[2016-09-15 08:11] LABS: ALKALINE PHOSPHATASE 54 U/L (38-133); ALT/SGPT 29 U/L (7-56); BILIRUBIN,TOTAL 0.4 mg/dL (0.2-1.3); BLOOD UREA NITROGEN 12 mg/dL (7-21); CALCIUM 7.9 mg/dL (8.4-10.5); CARBON DIOXIDE 20 mmol/L (21-33); CHLORIDE 107 mmol/L (95-110); GFR AFRICAN-AMERICAN > 60; GLUCOSE,RANDOM 56 mg/dL (70-110); POTASSIUM 3.7 mmol/L (3.6-5.0); SODIUM 137 mmol/L (132-148); TOTAL PROTEIN 5.5 g/dL (5.8-8.3)
[2016-09-15 08:37] LABS: AST/SGOT 23 U/L (15-39)
--- NOTE | 2016-09-15 08:42 | PN ---
DATE: 09/15/2016 The patient is in the [facility] in [place], room 364, bed 2. She was admitted with intestinal obstruction, small bowel. She has history of hypertension. The patient has history of atherosclerotic heart disease, degenerative arthritis. The patient also has a history of anxiety and depression. Her psychiatrist is Dr. Cagle. The patient is seen this morning. She is lying down, comfortable. She answers all the questions. She is pleasant. She has no pain at this time. The nasogastric tube is draining bile- colored fluid. PHYSICAL EXAMINATION: VITAL SIGNS: The pulse is 80, blood pressure 140/80. The patient's respirations are 20, temperature 97. O2 sat is 97% on room air. HEAD: Normocephalic. NECK: Thyroid is not enlarged. No lymphadenopathy. HEART: Normal sinus rhythm. S1, S2 present. LUNGS: Trachea is central. Breath sounds are vesicular, bilaterally equal. No adventitious sounds are heard. ABDOMEN: Soft. There is no localizing tenderness. RECTAL: Deferred. There are intestinal peristaltic sounds. The patient was complaining of constipation but she had an enema yesterday and it was resolved. The patient is on IV fluids, Protonix. The patient's condition seemed to be clinically stable. Overall, prognosis guarded based on what the outcome of intestinal obstruction is. We will follow up. MEDICATION LIST: She is on metoprolol IV q. 4 hours p.r.n. for systolic pressure over 150. The patient is on clonidine patch, TTS 3. The patient is on pantoprazole 40 mg IV and Valium [address] Cagle. She is on Zofran for nausea. Rory Culver MD cc: [phone] TT: 09/15/2016 08:41:43 Confirmation # [id number] Dictation # [id number] MTDD
--- NOTE | 2016-09-15 09:59 | CP.PCM.PN ---
Subjective - Date & Time of Evaluation Date of Evaluation: 09/15/16 Time of Evaluation: 09:56 - Subjective Subjective: Surgery: Dr. Stein Pt seen and examined. No acute overnight events. States she feels better today. Admits to hard stool passage after enema but denies voluntary BMs. Admits to flatus. Denies abdominal pain, N/V, F/C. Objective - Vital Signs/Intake and Output Vital Signs (last 24 hours): Temp Pulse Resp BP Pulse Ox 97 F L 80 20 140/80 97 09/14/16 16:00 09/14/16 16:00 09/14/16 16:00 09/14/16 16:00 09/14/16 16:00 Intake and Output: 09/15/16 09/15/16 06:59 18:59 Intake Total 0 Balance 0 - Medications Medications: Current Medications Benzocaine/Menthol (Cepacol Sore Throat) 1 loraine MT Q2H PRN PRN Reason: Sore Throat Last Admin: 09/14/16 13:57 Dose: 1 loraine Clonidine HCl (Catapres-Tts3 0.3 Mg/24 Hr) 1 patch TD Q7D@1000 [facility] Last Admin: 09/12/16 14:18 Dose: 1 patch Diazepam (Valium) 10 mg PO QID TD PRN Reason: Protocol Last Admin: 09/15/16 09:32 Dose: 10 mg Potassium Chloride/Dextrose/Sod Cl 50 ml/ Dextrose/Sodium Chloride 1,050 mls @ 100 mls/hr IV .[id number] [facility] Metoprolol Tartrate (Lopressor) 5 mg IVP Q4H PRN PRN Reason: for SBP>140 Last Admin: 09/12/16 22:38 Dose: 5 mg Ondansetron HCl (Zofran Inj) 4 mg IVP Q4H PRN PRN Reason: Nausea/Vomiting Pantoprazole Sodium (Protonix Inj) 40 mg IVP DAILY [facility] Last Admin: 09/15/16 09:32 Dose: 40 mg - Labs Labs: 09/15/16 07:00 09/15/16 07:00 PT 11.1 Seconds (9.9-11.8) 09/12/16 07:00 INR 1.03 (0.93-1.08) 09/12/16 07:00 APTT 25.9 Seconds (23.7-30.8) 09/12/16 07:00 - Constitutional Appears: Well, No Acute Distress - Head Exam Head Exam: ATRAUMATIC, NORMOCEPHALIC - Eye Exam Eye Exam: Normal appearance - ENT Exam ENT Exam: Mucous Membranes Moist - Respiratory Exam Respiratory Exam: NORMAL BREATHING PATTERN - Cardiovascular Exam Cardiovascular Exam: RRR - GI/Abdominal Exam GI & Abdominal Exam: Soft. absent: Distended, Guarding, Tenderness, Rebound - Extremities Exam Extremities Exam: absent: Tenderness - Neurological Exam Neurological Exam: Alert, Awake, Oriented x3 - Skin Skin Exam: Dry, Intact, Warm Assessment and Plan - Assessment and Plan (Free Text) Assessment: 81F with SBO; resolving Plan: - will administer another enema - will try clamping NGT and starting CLD to see if pt tolerates - cont to encourage ambulation - d/w Dr. Emil López, PGY-2 Surgery
[2016-09-15] MEDS: Potassium Chl 10 mEq in D5-1/2 1,000 ML IV SCH ×2 (16:02→22:40)
[2016-09-15] MEDS: Benzocaine/Menthol (Cepacol) Lozenge MT PRN (18:03)
[2016-09-16] MEDS: Metoprolol 1 mg/ml Inj IVP PRN ×2 (00:25→04:50)
--- NOTE | 2016-09-16 00:33 | CP.PCM.PN ---
Subjective - Date & Time of Evaluation Date of Evaluation: 09/16/16 Time of Evaluation: 00:32 - Subjective Subjective: Metroprolol 5 mg IV was administered slowly as per order. Ms Velasquez Sanchez is asymptomatic. BP 186/84, HR 95/min. Objective - Vital Signs/Intake and Output Vital Signs (last 24 hours): Temp Pulse Resp BP Pulse Ox 97 F L 95 H 20 184/82 H 97 09/14/16 16:00 09/16/16 00:25 09/14/16 16:00 09/16/16 00:25 09/14/16 16:00 Intake and Output: 09/15/16 09/16/16 18:59 06:59 Intake Total 540 Output Total 900 Balance -360 - Medications Medications: Current Medications Benzocaine/Menthol (Cepacol Sore Throat) 1 loraine MT Q2H PRN PRN Reason: Sore Throat Last Admin: 09/15/16 18:03 Dose: 1 loraine Clonidine HCl (Catapres-Tts3 0.3 Mg/24 Hr) 1 patch TD Q7D@1000 [facility] Last Admin: 09/12/16 14:18 Dose: 1 patch Diazepam (Valium) 10 mg PO QID [facility] PRN Reason: Protocol Last Admin: 09/15/16 21:59 Dose: 10 mg Potassium Chloride/Dextrose/Sod Cl (Potassium Chl 10 Meq In D5-1/2ns) 1,000 mls @ 100 mls/hr IV .Q10H [facility] Last Admin: 09/15/16 22:40 Dose: 100 mls/hr Metoprolol Tartrate (Lopressor) 5 mg IVP Q4H PRN PRN Reason: for SBP>140 Last Admin: 09/16/16 00:25 Dose: 5 mg Ondansetron HCl (Zofran Inj) 4 mg IVP Q4H PRN PRN Reason: Nausea/Vomiting Pantoprazole Sodium (Protonix Inj) 40 mg IVP DAILY [facility] Last Admin: 09/15/16 09:32 Dose: 40 mg - Labs Labs: 09/15/16 07:00 09/15/16 07:00 PT 11.1 Seconds (9.9-11.8) 09/12/16 07:00 INR 1.03 (0.93-1.08) 09/12/16 07:00 APTT 25.9 Seconds (23.7-30.8) 09/12/16 07:00
--- NOTE | 2016-09-16 04:58 | CP.PCM.PN ---
Subjective - Date & Time of Evaluation Date of Evaluation: 09/16/16 Time of Evaluation: 04:57 - Subjective Subjective: Lopressor 5 mg IV was administered as per order. She is asymptomatic. BP157/74, HR 81/min. Objective - Vital Signs/Intake and Output Vital Signs (last 24 hours): Temp Pulse Resp BP Pulse Ox 100 F H 81 20 157/74 H 98 09/16/16 02:18 09/16/16 04:50 09/16/16 02:18 09/16/16 04:50 09/16/16 02:18 Intake and Output: 09/15/16 09/16/16 18:59 06:59 Intake Total 540 Output Total 900 Balance -360 - Medications Medications: Current Medications Benzocaine/Menthol (Cepacol Sore Throat) 1 loraine MT Q2H PRN PRN Reason: Sore Throat Last Admin: 09/15/16 18:03 Dose: 1 loraine Clonidine HCl (Catapres-Tts3 0.3 Mg/24 Hr) 1 patch TD Q7D@1000 [facility] Last Admin: 09/12/16 14:18 Dose: 1 patch Diazepam (Valium) 10 mg PO QID [facility] PRN Reason: Protocol Last Admin: 09/15/16 21:59 Dose: 10 mg Potassium Chloride/Dextrose/Sod Cl (Potassium Chl 10 Meq In D5-1/2ns) 1,000 mls @ 100 mls/hr IV .Q10H [facility] Last Admin: 09/15/16 22:40 Dose: 100 mls/hr Metoprolol Tartrate (Lopressor) 5 mg IVP Q4H PRN PRN Reason: for SBP>140 Last Admin: 09/16/16 04:50 Dose: 5 mg Ondansetron HCl (Zofran Inj) 4 mg IVP Q4H PRN PRN Reason: Nausea/Vomiting Pantoprazole Sodium (Protonix Inj) 40 mg IVP DAILY [facility] Last Admin: 09/15/16 09:32 Dose: 40 mg - Labs Labs: 09/15/16 07:00 09/15/16 07:00 PT 11.1 Seconds (9.9-11.8) 09/12/16 07:00 INR 1.03 (0.93-1.08) 09/12/16 07:00 APTT 25.9 Seconds (23.7-30.8) 09/12/16 07:00
--- NOTE | 2016-09-16 08:23 | CP.PCM.PN ---
Subjective - Date & Time of Evaluation Date of Evaluation: 09/16/16 Time of Evaluation: 08:20 - Subjective Subjective: Surgery: Dr. Stein Pt seen and examined. No acute overnight events. States she feels better. Pt had a BM last night and continues to have flatus. Denies N/V, F/C. Objective - Vital Signs/Intake and Output Vital Signs (last 24 hours): Temp Pulse Resp BP Pulse Ox 99.4 F 81 20 157/74 H 95 09/16/16 04:56 09/16/16 04:56 09/16/16 04:56 09/16/16 04:56 09/16/16 04:56 Intake and Output: 09/16/16 09/16/16 06:59 18:59 Intake Total 1485 Output Total 2050 Balance -565 - Medications Medications: Current Medications Benzocaine/Menthol (Cepacol Sore Throat) 1 loraine MT Q2H PRN PRN Reason: Sore Throat Last Admin: 09/15/16 18:03 Dose: 1 loraine Clonidine HCl (Catapres-Tts3 0.3 Mg/24 Hr) 1 patch TD Q7D@1000 [facility] Last Admin: 09/12/16 14:18 Dose: 1 patch Diazepam (Valium) 10 mg PO QID [facility] PRN Reason: Protocol Last Admin: 09/15/16 21:59 Dose: 10 mg Potassium Chloride/Dextrose/Sod Cl (Potassium Chl 10 Meq In D5-1/2ns) 1,000 mls @ 100 mls/hr IV .Q10H [facility] Last Admin: 09/15/16 22:40 Dose: 100 mls/hr Losartan Potassium (Cozaar) 50 mg PO DAILY [facility] Metoprolol Tartrate (Lopressor) 5 mg IVP Q4H PRN PRN Reason: for SBP>140 Last Admin: 09/16/16 04:50 Dose: 5 mg Ondansetron HCl (Zofran Inj) 4 mg IVP Q4H PRN PRN Reason: Nausea/Vomiting Pantoprazole Sodium (Protonix Inj) 40 mg IVP DAILY [facility] Last Admin: 09/15/16 09:32 Dose: 40 mg - Labs Labs: 09/15/16 07:00 09/15/16 07:00 PT 11.1 Seconds (9.9-11.8) 09/12/16 07:00 INR 1.03 (0.93-1.08) 09/12/16 07:00 APTT 25.9 Seconds (23.7-30.8) 09/12/16 07:00 - Constitutional Appears: Well, No Acute Distress - Head Exam Head Exam: ATRAUMATIC, NORMOCEPHALIC - ENT Exam ENT Exam: Mucous Membranes Moist - Respiratory Exam Respiratory Exam: NORMAL BREATHING PATTERN - Cardiovascular Exam Cardiovascular Exam: RRR - GI/Abdominal Exam GI & Abdominal Exam: Soft. absent: Distended, Tenderness - Extremities Exam Extremities Exam: Full ROM. absent: Tenderness - Neurological Exam Neurological Exam: Alert, Awake, Oriented x3 - Skin Skin Exam: Dry, Warm Assessment and Plan - Assessment and Plan (Free Text) Assessment: 81F with SBO, resolving Plan: - take out NGT and start soft diet - will monitor for bowel function - possible DC home if tolerating diet and having BMs - d/w Dr. Emil López, PGY-2 Surgery
[2016-09-16] MEDS ORDERED: DEXTROSE IV SCH (08:30)
[2016-09-16] MEDS ORDERED: D5 IV SCH (08:30)
[2016-09-16] MEDS ORDERED: POTASSIUM CHL IV SCH (08:30)
[2016-09-16] MEDS ORDERED: [UNRECOGNIZED DRUG - OTHER] IV SCH (08:30)
[2016-09-16] MEDS: Potassium Chl 10 mEq in D5-1/2 1,000 ML IV SCH (09:46)
--- NOTE | 2016-09-16 10:11 | PN ---
DATE: 09/16/2016 The patient is in the [facility], room 364, bed 2. She was admitted with intestinal obstruction small bowel. She has past history of hyperlipidemia, hypertension. The patient's condition is improved. The patient 's nasogastric tube was withdrawn. The patient has been given a light meal. Today, the patient is going to get a regular meal. PHYSICAL EXAMINATION: VITAL SIGNS: This morning, pulse is 81, blood pressure 157/74, respirations are 20, O2 sat 95% on room air, temperature 99.4. HEAD: Normocephalic. NECK: The thyroid is not enlarged. Carotid pulses are present. JVP is flat. No lymphadenopathy. LUNGS: Trachea central. Breath sounds vesicular. No adventitious sounds. HEART: NSR. S1, S2 present. ABDOMEN: Soft, no tenderness. CENTRAL NERVOUS SYSTEM: No focal deficits are noted. The patient's hemoglobin is 11.0. The patient's differential count, the neutrophils are 16. The patient's chemistry: The sodium is 137, potassium is 3.7. The patient is getting IV fluids, normal saline with potassium chloride. The patient's total protein is 5.5. The patient's BUN is 12. MEDICATIONS: The patient is on medication for blood pressure, clonidine patch, metoprolol 5 mg IV q. 4 hours p.r.n. for systolic blood pressure over 140. However, the patient's IV medications are discontinued. Losartan 50 mg daily will be placed. The patient's IV fluids were reduced to 60 mL an hour. We will follow up. Rory Culver MD cc: [phone] TT: 09/16/2016 10:11:19 Confirmation # [id number] Dictation # [id number] MTDD
--- NOTE | 2016-09-16 10:46 | CP.PCM.PCO ---
Physician Communication Note - Physician Communication Note Physician Communication Note: DC NGT/Rx trial diet
[2016-09-16 10:55] LABS: BLOOD UREA NITROGEN 3 mg/dL (7-21); CALCIUM 8.4 mg/dL (8.4-10.5); CARBON DIOXIDE 23 mmol/L (21-33); CHLORIDE 107 mmol/L (98-107); GFR AFRICAN-AMERICAN > 60; GLUCOSE,RANDOM 121 mg/dL (70-110); POTASSIUM 3.5 mmol/L (3.6-5.0); SODIUM 137 mmol/L (132-148)
[2016-09-16] MEDS ORDERED: Metoprolol Succinate 25 mg XL Tab PO PRN ×2 (11:40→11:45)
[2016-09-16] MEDS ORDERED: POLYETHYLENE GLYCOL 3350 17 GM/Dose PACKET PO PRN ×2 (18:43→18:46)
[2016-09-16] MEDS ORDERED: Potassium Chloride 20 mEq ER Tab PO ONE (18:47)
[2016-09-17] MEDS: Potassium Chl 10 mEq in D5-1/2 1,000 ML IV SCH ×2 (03:00→17:27)
[2016-09-17] MEDS: Pantoprazole 40 mg EC Tab PO SCH (07:38)
--- NOTE | 2016-09-17 08:43 | PN ---
DATE: 09/17/2016 The patient is an 81-year-old white female. She was admitted to the [facility] in [place] with intestinal obstruction, small bowel. The patient has past history of hypertension, history of osteoarthritis and hyperlipidemia. The patient's clinical condition is improved. PHYSICAL EXAMINATION: VITAL SIGNS: This morning, the pulse is 81, blood pressure 157/75, respirations are 20, temperature is 99.4. LUNGS: Clear. HEART: Normal sinus rhythm. ABDOMEN: Soft, some mild distention. No local tenderness. CENTRAL NERVOUS SYSTEM: Within normal limits. The patient has a very hard bowel movement, pebble-like. LABORATORY DATA: Her electrolytes show a potassium of 3.5, which is to be repeated. All other chemical parameters seem to be within normal limits. The patient's condition is improved. We will follow up. Wait for surgical plan , and then will hopefully be able to discharge the patient and follow up as an outpatient. Rory Culver MD cc: [phone] TT: 09/17/2016 08:42:03 Confirmation # [id number] Dictation # [id number] claudio DALTON
[2016-09-17 09:52] LABS: BLOOD UREA NITROGEN 4 mg/dL (7-21); CALCIUM 8.5 mg/dL (8.4-10.5); CARBON DIOXIDE 27 mmol/L (21-33); CHLORIDE 107 mmol/L (98-107); GFR AFRICAN-AMERICAN > 60; GLUCOSE,RANDOM 99 mg/dL (70-110); POTASSIUM 3.9 mmol/L (3.6-5.0); SODIUM 140 mmol/L (132-148)
--- NOTE | 2016-09-17 10:13 | CP.PCM.PN ---
Subjective - Date & Time of Evaluation Date of Evaluation: 09/17/16 Time of Evaluation: 10:09 - Subjective Subjective: General Surgery Progress Note For Dr. Stein This 81F was seen and examined this AM at bedside. She reports no acute events overnight. SHe is passing flatus and moving her bowels. She is tolderating her diet. SHe denies any fevers, chills, chest pain, shortness of breath, nausea, vomiting or diarrhea. Objective - Vital Signs/Intake and Output Vital Signs (last 24 hours): Temp Pulse Resp BP Pulse Ox 99.4 F 71 20 136/74 95 09/16/16 06:00 09/17/16 09:37 09/16/16 06:00 09/17/16 09:37 09/16/16 06:00 Intake and Output: 09/17/16 09/17/16 06:59 18:59 Intake Total 540 480 Output Total 2200 Balance -1660 480 - Medications Medications: Current Medications Acetaminophen (Tylenol 325mg Tab) 650 mg PO Q6H PRN PRN Reason: Headache Last Admin: 09/16/16 18:59 Dose: 650 mg Benzocaine/Menthol (Cepacol Sore Throat) 1 loraine MT Q2H PRN PRN Reason: Sore Throat Last Admin: 09/15/16 18:03 Dose: 1 loraine Clonidine HCl (Catapres-Tts3 0.3 Mg/24 Hr) 1 patch TD Q7D@1000 [facility] Last Admin: 09/12/16 14:18 Dose: 1 patch Diazepam (Valium) 10 mg PO QID [facility] PRN Reason: Protocol Last Admin: 09/17/16 09:37 Dose: 10 mg Potassium Chloride/Dextrose/Sod Cl (Potassium Chl 10 Meq In D5-1/2ns) 1,000 mls @ 60 mls/hr IV .[id number] [facility] Last Admin: 09/17/16 03:00 Dose: 60 mls/hr Losartan Potassium (Cozaar) 50 mg PO DAILY [facility] Last Admin: 09/17/16 09:37 Dose: 50 mg Metoprolol Tartrate (Lopressor) 25 mg PO BID PRN PRN Reason: Systolic Blood Pressure Ondansetron HCl (Zofran Inj) 4 mg IVP Q4H PRN PRN Reason: Nausea/Vomiting Pantoprazole Sodium (Protonix Ec Tab) 40 mg PO ACB [facility] Last Admin: 09/17/16 07:38 Dose: 40 mg Polyethylene Glycol (Miralax) 17 gm PO DAILY PRN PRN Reason: Constipation - Labs Labs: 09/15/16 07:00 09/17/16 05:00 PT 11.1 Seconds (9.9-11.8) 09/12/16 07:00 INR 1.03 (0.93-1.08) 09/12/16 07:00 APTT 25.9 Seconds (23.7-30.8) 09/12/16 07:00 - Constitutional Appears: Non-toxic, No Acute Distress - Head Exam Head Exam: ATRAUMATIC, NORMOCEPHALIC - Eye Exam Eye Exam: EOMI - ENT Exam ENT Exam: Mucous Membranes Moist - Respiratory Exam Respiratory Exam: NORMAL BREATHING PATTERN - Cardiovascular Exam Cardiovascular Exam: REGULAR RHYTHM - GI/Abdominal Exam GI & Abdominal Exam: Soft. absent: Distended, Firm, Guarding, Rigid, Tenderness - Extremities Exam Extremities Exam: Normal Inspection - Neurological Exam Neurological Exam: Alert, Awake - Psychiatric Exam Psychiatric exam: Normal Affect, Normal Mood - Skin Skin Exam: Dry, Intact Assessment and Plan - Assessment and Plan (Free Text) Assessment: This is an 81F with a resolved small bowel obstruction Vital signs stable Labs grossly normal Symptoms have resolved Patient is clear for discharge from a surgical perspective. D/W Dr. Emil Vu PGY-1
--- NOTE | 2016-09-17 10:33 | CP.PCM.PCO ---
Physician Communication Note - Physician Communication Note Physician Communication Note: Rx Miralax/OK D/C-F/U Office
--- NOTE | 2016-09-18 08:10 | CP.PCM.PN ---
Subjective - Date & Time of Evaluation Date of Evaluation: 09/18/16 Time of Evaluation: 07:40 - Subjective Subjective: Patient is seen this morning. She is feeling better. She is tolerating diet. Objective - Vital Signs/Intake and Output Vital Signs (last 24 hours): Temp Pulse Resp BP Pulse Ox 99 F 68 20 140/79 99 09/17/16 17:40 09/17/16 20:58 09/17/16 17:40 09/17/16 20:58 09/17/16 17:40 Intake and Output: 09/18/16 09/18/16 06:59 18:59 Intake Total 1440 Output Total 4700 Balance -3260 - Medications Medications: Current Medications Acetaminophen (Tylenol 325mg Tab) 650 mg PO Q6H PRN PRN Reason: Headache Last Admin: 09/16/16 18:59 Dose: 650 mg Benzocaine/Menthol (Cepacol Sore Throat) 1 loraine MT Q2H PRN PRN Reason: Sore Throat Last Admin: 09/15/16 18:03 Dose: 1 loraine Clonidine HCl (Catapres-Tts3 0.3 Mg/24 Hr) 1 patch TD Q7D@1000 [facility] Last Admin: 09/12/16 14:18 Dose: 1 patch Diazepam (Valium) 10 mg PO QID [facility] PRN Reason: Protocol Last Admin: 09/17/16 21:51 Dose: 10 mg Potassium Chloride/Dextrose/Sod Cl (Potassium Chl 10 Meq In D5-1/2ns) 1,000 mls @ 60 mls/hr IV .[id number] [facility] Last Admin: 09/17/16 17:27 Dose: 60 mls/hr Losartan Potassium (Cozaar) 50 mg PO DAILY [facility] Last Admin: 09/17/16 09:37 Dose: 50 mg Metoprolol Tartrate (Lopressor) 25 mg PO BID PRN PRN Reason: Systolic Blood Pressure Last Admin: 09/17/16 18:31 Dose: 25 mg Ondansetron HCl (Zofran Inj) 4 mg IVP Q4H PRN PRN Reason: Nausea/Vomiting Pantoprazole Sodium (Protonix Ec Tab) 40 mg PO ACB [facility] Last Admin: 09/17/16 07:38 Dose: 40 mg Polyethylene Glycol (Miralax) 17 gm PO DAILY PRN PRN Reason: Constipation - Labs Labs: 09/15/16 07:00 09/17/16 05:00 PT 11.1 Seconds (9.9-11.8) 09/12/16 07:00 INR 1.03 (0.93-1.08) 09/12/16 07:00 APTT 25.9 Seconds (23.7-30.8) 09/12/16 07:00 - Constitutional Appears: No Acute Distress - Head Exam Head Exam: ATRAUMATIC, NORMOCEPHALIC - Respiratory Exam Respiratory Exam: Clear to Ausculation Bilateral, NORMAL BREATHING PATTERN - Cardiovascular Exam Cardiovascular Exam: +S1, +S2 - GI/Abdominal Exam GI & Abdominal Exam: Soft, Normal Bowel Sounds. absent: Tenderness - Neurological Exam Neurological Exam: Alert, Awake, Oriented x3 Assessment and Plan - Assessment and Plan (Free Text) Assessment: SBO HTN HLP Anxiety Hypokalemia Plan: Patient is tolerating diet and had a bowel movement yesterday. She is cleared for discharge by Dr. Stein, surgeon Will discharge home today. She will continue her home medications: Losartan 50mg daily Zocor 20mg HS She will followup in the office next Saturday.
[2016-09-18 08:26] VITALS: BP 142/77; PULSE 63; RESP 17; TEMP 97.9; O2SAT 96
[2016-09-18] MEDS: Pantoprazole 40 mg EC Tab PO SCH (09:50)
--- NOTE | 2016-10-14 16:33 | DS ---
BRIEF HISTORY: The patient is an 81-year-old female with history of hypertension, hyperlipidemia and anxiety disorder who presented to the Emergency Room with abdominal pain and vomiting. She had no fever, no diarrhea. On admission, her white count was 8000. Blood sugar 113. Sodium 133 , potassium 3.6. Liver enzymes were within normal limits. CAT scan of the abdomen and pelvis was done, which showed small intestinal obstruction. HOSPITAL COURSE: The patient was admitted to the general medical floor. She was placed on IV fluids and kept n.p.o. Dr. Stein, who is a general surgeon , was consulted for the small-bowel obstruction and Dr. Cagle was consulted for her long history of anxiety. NG tube was placed by surgery which drained large amounts of dark greenish brown fluid. Once the drainage began to slow down, the NG tube was removed. The patient's diet was advanced slowly. She was passing gas; however, she did not have a bowel movement. She was given MiraLax. The patient then had a bowel movement the next day and was discharged home in improved condition. DISCHARGE DIAGNOSES: Small bowel obstruction, hypertension, hyperlipidemia, anxiety. DISCHARGE MEDICATIONS: Cozaar 50 mg once a day, Zocor 20 mg once a day. FOLLOWUP: The patient will be followed up in 2 weeks in the office. Suleman Culver MD cc: [id number] TT: 10/14/2016 16:32:46 claudio DALTON
== END 2016-09-18 13:06 | disposition home or self-care (01) | DRG 390 ==
LOC: ED 13:34 → ERH 17:35 → 3RNO 20:20
PROVIDERS: ADMIT Internal Medicine; ATTEND Internal Medicine
PROC: 0D9670Z Drainage of Stomach with Drainage Device, Via Natural or Artificial Opening (ICD-10-PCS; principal; 2016-09-12)
DX: K56.60 Unspecified intestinal obstruction (principal); I10 Essential (primary) hypertension; E78.5 Hyperlipidemia, unspecified; F41.1 Generalized anxiety disorder; E87.6 Hypokalemia; F32.9 Major depressive disorder, single episode, unspecified; F60.4 Histrionic personality disorder; F45.9 Somatoform disorder, unspecified; M19.90 Unspecified osteoarthritis, unspecified site